=== PATIENT | male | born 1975 | race Hispanic/Latino ===

== ENCOUNTER 2024-06-26 00:10 | Day surgery (SDC) | payer OTHER, SELFPAY ==
[2024-06-05 14:36] VITALS: BMI 31.4
[2024-06-26 09:24] VITALS: BP 128/71; PULSE 57; RESP 18; TEMP 36.1; O2SAT 100
[2024-06-26] MEDS: LACTATED RINGERS 1,000 ML 150 ML IV CONT (09:33)
--- NOTE | 2024-06-26 09:53 | P.PNAN_ITS ---
Anes - Initial Pre Proc Eval Procedure: Operation Date: 06/26/24 10:30 Proposed Procedures p Screening Colonoscopy - Eduardo Vale DO Date/Time: 06/26/24 09:53 Surgeon: Eduardo Vale DO Pre Op Diagnosis: Screening for malignant neoplasm of colon Patient Data Age: 48 Gender: M Height: 1.73 m Weight: 94.7 kg Last Vital Signs Temp 36.1 C L 06/26/24 09:24 Pulse 57 L 06/26/24 09:24 Resp 18 06/26/24 09:24 BP 128/71 06/26/24 09:24 Pulse Ox 100 06/26/24 09:24 O2 Del Method Room Air 06/26/24 09:24 Allergies Allergy/AdvReac Type Severity Reaction Status Date / Time No Known Allergies Allergy Verified 06/26/24 09:23 Home Medications Medication Instructions Recorded Confirmed Type cholecalciferol (vitamin D3) 1 cap PO DAILY 05/01/24 06/26/24 History esomeprazole magnesium 40 mg 250 mg PO DAILY 05/01/24 06/26/24 History granules delayed release for susp omega-3 fatty acids 1 cap PO DAILY 05/01/24 06/26/24 History zinc acetate 1 cap PO DAILY 05/01/24 06/26/24 History Patient hx anesthesia problems: none Family hx anesthesia problems: none Results Review: All pre-operative results and documents have been reviewed as part of the pre- operative evaluation. [facility] Past Medical History Medical History Allergies Sleep apnea Surgical History Surgical History H/O vasectomy Family History Family History Mother Thyroid disorder Breast cancer Father Hypertension Grandparent Cancer Breast cancer Social History Social History Social History: Caffeine: Cup of coffee in the morning Smoking status: Never smoker Alcohol intake: current Drinks per week: 5 Alcohol use details: Maybe once a week Substance use: never Substance use type: does not use Do You Feel Safe in your Home?: Yes Lack of Transportation: No Lack of Food: Never True Current Housing: I Have Housing Concerned About Future Housing: No Difficulty Paying Gas/Electric Bills: No Difficulty Paying for Meds: No Currently Unemployed: No Education: Bachelor's Degree Difficulty w/ Childcare or Family Care: No Living arrangements: with family Occupation/Education: occupation Gender identity (if verbalized by the patient): Male Sexual Orientation (if Verbalized by the Patient): Straight or Heterosexual Spiritual care concerns: No Agree to blood products: Yes Anes - Eval Final PreProcedure Day of Procedure 06/26/24 09:53 Patient weight: obese Heart: regular rate and rhythm Lungs: clear to auscultation Airway: Mallampati scale class II Neurological: alert and oriented Last oral intake: >/= 8 hours ASA classification: II Emergent: no Anesthetic plan: proceed Anesthesia type and monitoring: general GIVS and standard monitoring Results Review: All pre-operative results and documents have been reviewed as part of the pre- operative evaluation. Informed Consent: The patient's anesthetic plan and its attendant risks and benefits were discussed with the patient/family/POA. Questions were solicited and answers provided to the satisfaction of the patient/family/POA.
--- NOTE | 2024-06-26 09:56 | PM.IMHP ---
H&P: HPI History of Present Illness Date/Time: 06/26/24 09:56 Chief Complaint: screening for colorectal cancer Narrative: this is a 48-year-old man who presents his 1st colonoscopy. He denies any hematochezia melena. Denies any family history of colon cancer. Review of Systems Review of Systems: All systems reviewed & are unremarkable except as noted in HPI and below Constitutional: Constitutional: Denies chills, Denies fever(s), Denies headache(s) and Denies weight loss Eyes: Eyes: Denies change in vision ENT: Denies dizziness, Denies headache(s), Denies neck mass and Denies throat swelling Cardiovascular: Cardiovascular: Denies chest pain, Denies lightheadedness and Denies dyspnea Respiratory: Respiratory: Denies cough, Denies dyspnea and Denies wheezing Gastrointestinal: Gastrointestinal: Denies abdominal pain, Denies change in bowel habits, Denies nausea and Denies vomiting Genitourinary: Genitourinary: Denies hematuria and Denies dysuria Musculoskeletal: Musculoskeletal: Reports as per HPI Integumentary/Breasts: Skin/Breast: Reports as per HPI Neurologic: Denies dizziness and Denies headache(s) Allergic/Immunologic: Allergic/Immunologic: Denies throat swelling and Denies wheezing PMFSH Past Medical History Medical History Allergies Sleep apnea Surgical History Surgical History H/O vasectomy Family History Family History Mother Thyroid disorder Breast cancer Father Hypertension Grandparent Cancer Breast cancer Social History Social History Social History: Caffeine: Cup of coffee in the morning Smoking status: Never smoker Alcohol intake: current Drinks per week: 5 Alcohol use details: Maybe once a week Substance use: never Substance use type: does not use Do You Feel Safe in your Home?: Yes Lack of Transportation: No Lack of Food: Never True Current Housing: I Have Housing Concerned About Future Housing: No Difficulty Paying Gas/Electric Bills: No Difficulty Paying for Meds: No Currently Unemployed: No Education: Bachelor's Degree Difficulty w/ Childcare or Family Care: No Living arrangements: with family Occupation/Education: occupation Gender identity (if verbalized by the patient): Male Sexual Orientation (if Verbalized by the Patient): Straight or Heterosexual Spiritual care concerns: No Agree to blood products: Yes Meds Home Medications and Allergies Home Medications Medication Instructions Recorded Confirmed Type cholecalciferol (vitamin D3) 1 cap PO DAILY 05/01/24 06/26/24 History esomeprazole magnesium 40 mg 250 mg PO DAILY 05/01/24 06/26/24 History granules delayed release for susp omega-3 fatty acids 1 cap PO DAILY 05/01/24 06/26/24 History zinc acetate 1 cap PO DAILY 05/01/24 06/26/24 History Allergies Allergy/AdvReac Type Severity Reaction Status Date / Time No Known Allergies Allergy Verified 06/26/24 09:23 Vital Signs Vital Signs - 24 hr 06/26/24 09:24 Temperature 97 F L Pulse Rate 57 L Respiratory Rate 18 Blood Pressure 128/71 Pulse Oximetry 100 Oxygen Delivery Room Air Exam Const: General: no acute distress and alert Orientation/consciousness: patient oriented x3 HENMT: Head: normocephalic and atraumatic Ears: hearing grossly normal bilaterally Face/Nose/Sinus: Normal nares present Mouth: Yes Normal oral and palatal mucosa present Eyes: Periorbital: periorbital findings normal Sclera: sclerae normal EOM: EOMs intact bilaterally Neck: Neck: normal visual inspection, no lymphadenopathy and trachea midline Chest: Chest palpation & inspection: normal inspection of the chest Resp: Effort & Inspection: normal respiratory effort Auscultation: clear to auscultation bilaterally Cardio: Jugular venous distension: no JVD Rate: regular rate Rhythm: regular rhythm Heart sounds: S1 normal heart sound present and S2 normal heart sound present Peripheral pulses: Peripheral pulses 2+ throughout GI: Inspection: normal to inspection GI Palp: Yes Soft to palpation, No Tenderness to palpation present (GI), No Guarding due to palpation present (GI) and No Rebound tenderness present Percussion: Yes normal to percussion Auscultation: normal bowel sounds : General: Yes no CVA tenderness Back/Spine/Pelvis: Back: no CVA tenderness Neuro: General: patient oriented x3, no focal motor deficits and CN's II-XI intact bilaterally Cognition (Neuro): normal cognition Speech: normal speech Motor exam (neuro): 5/5 motor strength present throughout Extrem: General: capillary refill normal and no clubbing, cyanosis or edema Assessment and Plan Assessment and plan (1) Screening for colorectal cancer: Code(s): Z12.11 - Encounter for screening for malignant neoplasm of colon; Z12.12 - Encounter for screening for malignant neoplasm of rectum Status: Acute Assessment and Plan: I have recommended colonoscopy. I have discussed the procedure, risks, benefits, and alternatives. Questions were answered. Patient is agreeable to proceed.
[2024-06-26 10:30] VITALS: BP 115/93; PULSE 60; RESP 17; O2SAT 96
[2024-06-26 10:40] VITALS: BP 116/96; PULSE 49; RESP 22; O2SAT 97
[2024-06-26 10:50] VITALS: BP 103/58; PULSE 48; RESP 16; O2SAT 100
== END 2024-06-26 11:06 | disposition home or self-care (01) ==
PROVIDERS: PCP Family Medicine; Visit Provider Surgery
PROC: 0DJD8ZZ Inspection of Lower Intestinal Tract, Via Natural or Artificial Opening Endoscopic (ICD-10-PCS; CPT 45378; principal; 2024-06-26 10:30)
DX: Z12.11 Encounter for screening for malignant neoplasm of colon (principal); K57.30 Diverticulosis of large intestine without perforation or abscess without bleeding; E66.9 Obesity, unspecified; Z68.31 Body mass index [BMI] 31.0-31.9, adult
CPT/HCPCS: 45378; J2003; J2704; J7120

== ENCOUNTER 2024-06-28 09:55 | Outpatient (CLI) | payer OTHER, SELFPAY ==
--- NOTE | 2024-07-22 12:31 | P.SLEEP_ITS ---
Sleep Study - Home Unattended Date of Study: 06/28/24 Ordering Provider: Danis Hendrickson DO Interpreting Provider: Natali Venegas DO Home Sleep Study Type: Watch PAT Height: 1.73 m Weight: 94.347 kg Body Mass Index: 31.6 Neck Circumference (inches): 17.5 [place]: 4 Reason for Sleep Study snoring Sleep History The patient is a 48-year-old male that had a sleep study ordered by his primary care physician for evaluation of sleep apnea. The patient snores loudly and has difficulty maintaining sleep. He does stop breathing while asleep. He denies choking or gasping at night. He denies having trouble breathing on his back. He denies morning headaches. He does have a port drier sore mouth / throat in the morning. He denies nocturnal heartburn. He urinates twice per night. He denies having difficulty falling asleep. He denies having difficulty returning to sleep within wakes up throughout the night. He denies any hypnotic or sedative use. He denies feeling anxious about sleep. He does feel tired or sleepy during the day. He does feel tired in the morning. He does not have the urge to fall asleep during the day. He does not feel drowsy while driving. He denies sleep paralysis, cataplexy and hypnagogic / hypnopompic hallucinations. He does clench or grind his teeth at night. He denies kicking or jerking his legs excessively. He denies having a restless feeling in his legs. He goes to bed at 9:50 a.m. on work days and at 10:30 p.m. on his days off. It takes him 15 minutes to fall asleep. He gets 7-1/2 hours of sleep a more days and 8-1/2 hours of sleep on his days off. His sleep is somewhat more restorative on his days off. He denies taking any stay and naps. He denies dream enactment behavior. He denies sleep walking. He consumes 1-2 cups of caffeinated beverage per day. He consumes 2 glasses of an alcoholic beverage 1-2 nights per week. He denies tobacco use. He does exercise 3-4 nights per week. [facility] Past Medical History Medical History Sleep apnea Allergies Surgical History Surgical History H/O vasectomy Family History Family History Mother Thyroid disorder Breast cancer Father Hypertension Grandparent Cancer Breast cancer Social History Social History Social History: Caffeine: Cup of coffee in the morning Smoking status: Never smoker Alcohol intake: current Drinks per week: 5 Alcohol use details: Maybe once a week Substance use: never Substance use type: does not use Do You Feel Safe in your Home?: Yes Lack of Transportation: No Lack of Food: Never True Current Housing: I Have Housing Concerned About Future Housing: No Difficulty Paying Gas/Electric Bills: No Difficulty Paying for Meds: No Currently Unemployed: No Education: Bachelor's Degree Difficulty w/ Childcare or Family Care: No Living arrangements: with family Occupation/Education: occupation Gender identity (if verbalized by the patient): Male Sexual Orientation (if Verbalized by the Patient): Straight or Heterosexual Spiritual care concerns: No Agree to blood products: Yes Medications Home Medications ?Medication ?Instructions ?Recorded ?Confirmed ?Type cholecalciferol (vitamin D3) 1 cap PO DAILY 05/01/24 06/26/24 History esomeprazole magnesium 40 mg 250 mg PO DAILY 05/01/24 06/26/24 History granules delayed release for susp omega-3 fatty acids 1 cap PO DAILY 05/01/24 06/26/24 History zinc acetate 1 cap PO DAILY 05/01/24 06/26/24 History Sleep Procedure The sleep study was completed using YieldrPAT a technically adequate device with seven channels: peripheral arterial tone, actigraphy, body position, snore, respiratory movement, pulse oximetry, sleep staging, and heart rate. Prior to using the device, the patient received verbal and written instructions for its application and was provided with the help desk phone number for additional telephonic instruction with 24-hour availability of qualified personnel to answer questions. The study was scored using CMS guidelines. Sleep Architecture The total recording time is 7 hrs, 55 min. The total sleep time is 6 hrs, 31 min. Sleep latency is 13 minutes. REM latency is 50 minutes. The patient had 11 episodes of waking. Sleep architecture shows 24.5% deep sleep, 61.3% light sleep, and (as % Total Sleep Time) showed NREM (Light 61.3%; Deep 24.5%), and a 14.2% stage REM. The patient spent 43.7% of total sleep time in the supine position. Sleep efficiency was 82.32. Respiratory Analysis The overall AHI (pAHI 3%:) is 4.6. The central AHI is 0.9. The AHI was 4.1 in NREM and 7.6 in REM sleep. The AHI was 8.4 in Supine and 1.6 in Non-supine sleep. Percent of Drew Zepeda respirations is 0.0. Oximetry Data The oxygen desaturation index (PUMA 4%:) is 1.8. The mean saturation is 93%, and the lowest saturation is 88%. Time spent with saturation < 88% is 0.0 minutes. Snoring Profile Snoring average intensity is 41 dB. The patient snored above 45 decibels for 37.1 minutes, 9.5% of sleep time. Cardiac Profile The average pulse rate is 47 beats per minutes. The lowest pulse rate is 37 bpm. The highest pulse rate reported is 81 bpm. Atrial fibrillation was not detected. Premature beats occur <0.1 per minute. Assessment and Plan Assessment and Plan (1) Snoring: Code(s): R06.83 - Snoring Status: Acute Assessment and Plan: The patient had an overall AHI of 4.6 with desaturation down to 88%. This is not consistent with sleep disordered breathing. The patient's overall AHI was just below the cutoff to meet criteria for mild sleep apnea. Not all nights of sleep are equal and the patient would likely meet criteria for sleep apnea on another night. If the patient is having significant issues with his sleep, I recommend that he have an in lab split study with the use fo a hypnotic (Lunesta 2-3 mg or Ambien 5-10 mg) to ensure we obtain enough sleep data. Alternatively, the patient could also repeat the home sleep test in the future. Data The data obtained during this sleep study is adequate for interpretation. Certification This sleep study has been reviewed by a board certified sleep medicine physician.
[2024-07-22 12:32] VITALS: BMI 31.6
== END 2024-06-29 13:23 | disposition home or self-care (01) ==
LOC: ANHCSM 09:57
PROVIDERS: PCP Family Medicine; Visit Provider Family Medicine
DX: R06.83 Snoring (principal); G47.10 Hypersomnia, unspecified
CPT/HCPCS: 95800

== ENCOUNTER 2025-03-29 08:48 | Outpatient (CLI) | payer OTHER, SELFPAY ==
--- OUTSIDE RECORDS SUMMARY | 2025-03-29 08:56 | XMS_ITS | Clinical Summary ---
Author Organization [facility] Address [address] [place] [address] Care Team Providers Care Clothes Designer Name Role Phone None, Physician Primary Care Provider Unavailabl e Source Comments [facility],non-owned Affiliates and Associated Physician Practices is amultiple site organization consisting of ambulatory clinics and hospital sitesin [place], [place], [place] and [place]. This disclosure is being madepursuant to the Care Everywhere program and may not contain all information available regarding this patient. Last updated 18.[facility] Health Encounters Date Type Department Care Team Description 02/16/2025 Travel from Last 3 Months Social History Tobacco Use Types Packs/Day Years Used Date Smoking Tobacco: Never Assessed Sex and Gender Information Value Date Recorded Sex Assigned at Not on file Legal Sex Male 7:54 AM CDT Gender Identity Not on file Sexual Orientation Not on file Last Filed Vital Signs Vital Sign Reading Time Taken Comments Blood Pressure 135/85 11/23/2018 10:19 AM CDT Pulse 62 11/23/2018 10:19 AM CDT Temperature 36.8 C (98.3 F) 11/23/2018 10:19 AM CDT Respiratory Rate 18 11/23/2018 10:1 9 AM CDT Oxygen Saturation 93% 11/23/2018 10: 19 AM CDT Inhaled Oxygen Concentration - - Weight 115.3 kg (254 lb 1.6 oz) 019 10:19 AM CDT Height 172.7 cm (5' 8) 11/23/2018 10:1 9 AM CDT Body Mass Index 38.64 11/23/2018 10:19 AM CDT Plan of Treatment Upcoming Encounters Date Type Department Care Team (Late st Contact Info) Description 04/20/2025 2:30 PM CDT Office Visit [facility] - Urology [address] [place] [address] Juventino Levin MD [address] [place] [address] Health Maintenance Due Date Last Done Comments COLOGUARD (AGES 45-75) - COL ON CA SCREENING 1977 COLON MONITORING 1977 COLONOSCOPY - COLON CA SCREENING [address] CT COLONOGRAPHY - COLON CA SCREENING 1977 Colorectal Cancer Screening 1977 FIT - COLON CA SCREENING 1977 FLEX SIG - COLON CA SCREENING 1977 LIPID TESTING 1977 HIV SCREENING 1992 HEPATITIS C SCREENING 12/06/1995 DTAP/TDAP/TD VACCINES (1 - Tdap) 1996 HEPATITIS B VACCINE (1 of 3 - 19+ 3-dose series) 1996 DEPRESSION SCREENING 07/26/2024 COVID-19 VACCINE (1 - 2023-2 5 season) 2025 INFLUENZA VACCINE (#1) 2025 09/16/2016 ZOSTER VACCINE (1 of 2) 12/11/2027 HIB VACCINE Aged Out No longer eligi ble based on patient's age to complete this topic HPV VACCINE Aged Out No longer eligi ble based on patient's age to complete this topic MENINGOCOCCAL (Group B) VACC INE SHARED DECISION-MAKING Aged Out No longer eligibl e based on patient's age to complete this topic MENINGOCOCCAL GROUPS A/C/Y/W VACCINE Aged Out No longer eligible b ased on patient's age to complete this topic PNEUMOCOCCAL VACCINE Aged Out No long er eligible based on patient's age to complete this topic Insurance [place] [address] Care Teams Clothes Designer Relationship Specialty Start Date End Date None, Physician PCP - General 02/16/25
--- OUTSIDE RECORDS SUMMARY | 2025-03-29 08:56 | XMS_ITS | Clinical Summary ---
Author Organization [facility] [address] Address [address] [place] [address] Care Team Providers Care Packer Insulation Name Role Phone Lily Prieto MD Primary Care Provider Allergies No known active allergies Medications silver sulfadiazine (SILVADENE, SSD) 1 % cream Apply topically daily 50 g 1 Active sildenafiL (VIAGRA) 25 mg tablet TAKE 1 TABLET BY MOUTH NEEDED FOR ERECTILE DYSFUNCTION 1 Active LORazepam (ATIVAN) 2 mg tablet 1 Active Active Problems Problem Noted Date Diagnosed Date Orchitis and epididymitis 02/03/2021 Hepatic steatosis 09/08/2017 DIPTI (obstructive sleep apnea) 11/12/2016 Restless legs syndrome (RLS) 11/12/2016 Non morbid obesity due to excess calories 2016 Adiposity 12/09/2013 Overview (10/29/2016): OBESITY NOS 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 (10/30/2016): MIXED HYPERLIPIDEMIA Hyperlipidemia 05/22/2010 Overview (10/29/2016): Hyperlipidemia Immunizations Immunization Administration Dates Next Due Influenza LAIV (Nasal) 05/02/2014 Tdap 07/24/2009 Medical History Medical History Date Comments Hyperlipidemia Hyperlipidemia Adiposity Obesity Hypercholesterolemia Family History Medical History Relation Name Comments Breast cancer Father's Sister Cancer, tabatha ast; Other Mother Overactive thyr oid, zapped; Diabetes Other 1 Family history of Diabetes mellitus; Migraines Other 2 Family history of Migraines; Relation Name Status Comments Father's Sister Mother Other 1 Other 2 Social History Tobacco Use Types Packs/Day Years Used Date Smoking Tobacco: Former Smokeless Tobacco: Never Alcohol Use Standard Drinks/Week Comments Yes 0 (1 standard drink = 0.6 oz pur e alcohol) Sex and Gender Information Value Date Recorded Sex Assigned at Not on file 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 Gender Identity Not on file Sexual Orientation Not on file Obstetrics History Last Filed Vital Signs Vital Sign Reading Time Taken Comments Blood Pressure 132/73 01/16/2022 2:45 AM CDT Pulse 75 01/16/2022 2:45 AM CDT Temperature 36.8 C (98.3 F) 01/16/2022 2:45 AM CDT Respiratory Rate 18 01/16/2022 2:45 AM CDT Oxygen Saturation 93% 01/16/2022 2:45 AM CDT Inhaled Oxygen Concentration - - Weight 91.2 kg (201 lb) 01/16/2022 2:45 AM CDT Height 172.7 cm (5' 8) 01/16/2022 2:45 AM CDT Body Mass Index 30.56 01/16/2022 2:45 AM CDT Plan of Treatment Not on file Insurance [address] [place] [phone] [facility] [employer] Care Teams Packer Insulation Relationship Specialty Start Date End Date Lily Prieto MD PCP - General Family Medicine 11/13/17
--- OUTSIDE RECORDS SUMMARY | 2025-03-29 08:56 | XMS_ITS | Clinical Summary ---
Author Organization [facility] Address [address] [place] [address] Phone Care Team Providers Care Farm Operator Name Role Phone Unavailable Primary Care Provider Unavailabl e Allergies No known active allergies Medications methylPREDNISol one (MEDROL DOSPACK) 4 MG Tablet Therapy Pack Use as per instructions on package. 1 Tablet 3 Active Active Problems Problem Noted Date Diagnosed Date Hepatic steatosis 09/08/2017 DIPTI (obstructive sleep apnea) 11/12/2016 Restless legs syndrome (RLS) 11/12/2016 Non morbid obesity due to excess calories 2016 Immunizations Immunization Administration Dates Next Due Covid-19 Vaccine, Vector-nr, Rs-ad26, Pf, 0.5 Ml (ANNE MARIE/J&J) 10/31/2020 Influenza Vaccine 04/16/2015 Influenza Vaccine, MDCK,quad rivalent, pres free 04/29/2020,07/03/2019 Influenza Vaccine, Quadrivalent, PF 04/21/2022,1 ,09/16/2016 Influenza, Seasonal, Injectable, Undefined 05/02 PUR FLU 3+ YRS PRES FREE QUAD IM 09/16/2016 TDAP Vaccine 12/03/2021,07/24/2009 Family History Medical History Relation Name Comments No Known Problems Brother Asthma Daughter Hypertension Father Cancer Mother breast Thyroid Disease Mother Cancer Paternal Aunt breast cancer No Known Problems Son Relation Name Status Comments Brother Alive Daughter Alive Father Alive Mother Alive Paternal Aunt Son Alive Social History Tobacco Use Types Packs/Day Years Used Date Smoking Tobacco: Never Smokeless Tobacco: Never Tobacco Cessation:Counseling Given: No Alcohol Use Standard Drinks/Week Comments Yes 0 (1 standard drink = 0.6 oz pur e alcohol) Occasional PHQ-2 Answer Date Recorded Total Score - Questions 1-9 0 11/23 Education Answer Date Recorded What is the highest level of school you have completed or the highest degree you have received? Associate degree: academic program 12/04/2020 Sexually Active Control Partners Comments Yes Sex and Gender Information Value Date Recorded Sex Assigned at Not on file Legal Sex Male 8:54 PM CDT Gender Identity Not on file Sexual Orientation Not on file Last Filed Vital Signs Vital Sign Reading Time Taken Comments Blood Pressure 114/64 12/07/2022 10:54 AM CDT Pulse 64 12/07/2022 10:54 AM CDT Temperature 36.1 C (97 F) 12/07/2022 10:54 AM CDT Respiratory Rate 18 12/07/2022 10:54 AM CDT Oxygen Saturation 97% 12/07/2022 10:54 AM CDT Inhaled Oxygen Concentration - - Weight 97.3 kg (214 lb 6.4 oz) 12/07/2022 10:54 AM CDT Height 172.7 cm (5' 8) 12/07/2022 10:54 AM CDT Body Mass Index 32.6 12/07/2022 10:54 AM CDT Plan of Treatment Health Maintenance Due Date Last Done Comments Hepatitis B Immunization (1 of 3 - 19+ 3-dose series) 1996 Cologuard 2022 Colonoscopy 2022 Colorectal Cancer Screening 2022 Immunochemical Fecal Occult Blood 2022 Influenza Immunization (#1) 03/26/202503/27, 04/29/2021, 04/29/2020, Additional history exists SARS-COV-2 Immunization ( season) 2025 10/31/2020 Td Immunization Every 10 Years (Adults With 1 Tdap) 12/04/2031 12/03/2021, 07/24/2009 Respiratory Syncytial Virus (RSV) Immunization (Adult) (1 - 1-dose 75+ series) 2052 Hepatitis C Virus (HCV) Screening Completed 10/28/2016 Human Papillomavirus (HPV) Immunization Aged Out No longer eligible based on patient's age to complete this topic Meningococcal Immunization (ACWY) Aged Out No longer eligible based on patient's age to complete this topic Pneumococcal Immunization Combined Aged Out No longer eligible based on patient's age to complete this topic Rotavirus Immunization Aged Out No lo nger eligible based on patient's age to complete this topic Procedures Procedure Name Priority Date/Time Associated Diagnosis Comments HEPATITIS C ANTIBODY Routine 10/28/2016 9:17 AM CDT Other nonspecific abnormal serum enzyme levels from Last 3 Months or Most Recently Relevant to Health Maintenance Results * HEPATITIS C ANTIBODY (10/28/2016 9:17 AM CDT) hepatitis C antibody 0.12 <1 S/CO 10/28/2016 11:40 PM CDT [facility] Comment: Signal/Cutoff ratio < 0.79 is Nondetected Signal/Cutoff ratio 0.80-0.99 is Grayzone Signal/Cutoff ratio > 0.99 is Detected Supplemental assays are recommended if signal/cutoff ratio is >/=1.00. Signal/cutoff ratio result >/= 5.00 is 97% predictive of positivity for recombinant immunoblot assay (RIBA) and will be reported to the [place] [facility] as required. Blood specimen (specimen) Venipuncture / Unknown 10/28/2016 9:17 AM CDT 10/28/2016 9:17 AM CDT us Lily Prieto MD CHEMISTRY ORDERABLES Final Result [facility] [address] [place] [address], [place] from Last 3 Months or Most Recently Relevant to Health Maintenance Insurance [address] [place] [id number] [employer] [facility]
== END 2025-03-29 08:49 | disposition home or self-care (01) ==
LOC: ANHGOSHLAB 08:49
PROVIDERS: PCP Clinical Nurse Specialist; Visit Provider Internal Medicine
DX: Z76.89 Persons encountering health services in other specified circumstances (principal)
CPT/HCPCS: 36415